=== PATIENT | male | born 1945 | race Caucasian/White ===

== ENCOUNTER → 2018-07-24 | Outpatient (REF) | payer MEDICARE, OTHER ==
[~2018-07-24] MED LIST: ASPIRIN LOW DOS81 M2 PO; BETIMOL0.5 % OP; FLUTICASONE50 MCG; GABAPENTIN300 MG PO; LIPITOR20 MG PO; LISINOPRIL5 MG PO; LORATADINE10 M1 PO; METOPROL TAR25 MG PO; PRILOSEC40 MG PO; TYLENOL # 31 TA1 PO
== END | disposition home or self-care (01) ==
LOC: RT 07:46 → CT 09:00
PROVIDERS: ATTEND Internal Medicine
DX: R05 Cough (principal)

== ENCOUNTER → 2018-12-02 | Outpatient (REF) | payer MEDICARE, OTHER ==
[2018-12-02 09:26] LABS: HEMATOCRIT 40.4 % (39.0-50.0); HEMOGLOBIN 13.1 g/dl (14.0-18.0); IMMATURE GRANULOCYTES 0.2 % (0.0-5.0); MEAN CELL VOLUME 89.2 fL CALC (80.0-100.0); MEAN CORPUSCULAR HGB 28.9 pG CALC (26.0-32.0); MEAN CORPUSCULAR HGB CONC 32.4 g/L CALC (32.0-36.0); NEUT# 2.51 thou/uL (1.82-7.42); RED BLOOD COUNT 4.53 mill/uL (4.70-6.10); RED CELL DISTRI WIDTH 12.7 % (11.5-15.5)
[2018-12-02 09:45] LABS: ALKALINE PHOSPHATASE 82 u/l (38-126); ANION GAP 14 (6-22 (CALC)); BILIRUBIN, TOTAL 0.6 mg/dL (0.0-1.4); BUN 23 mg/dL (8-23); BUN/CREATININE RATIO 18 (12-20 (CALC)); CALCULATED LDLCHOLESTEROL 65 mg/dL (62-129 (CALC)); CARBON DIOXIDE 25 mmol/l (22-30); CHLORIDE 106 mmol/l (95-108); CHOLESTEROL HDL RATIO 3.8 (<4.4 (CALC)); CREATININE 1.3 mg/dL (0.7-1.3); GFR 54 ML/MIN (>=60 (CALC)); GFR FOR AFR.AMER. > 60 ML/MIN (>=60 (CALC)); HDL CHOLESTEROL 29 mg/dL (>=40); POTASSIUM 4.3 mmol/l (3.5-5.1); SGOT/AST 25 u/l (19-48); SODIUM 142 mmol/l (137-146); TOTAL CHOLESTEROL 112 mg/dl (0-199); TOTAL PROTEIN 6.6 g/dL (6.3-8.2); TOTAL TRIGLYCERIDES 91 mg/dl (30-149); VLDL CHOLESTROL 18 mg/dl (0-38 (CALC))
[2018-12-02 09:48] LABS: MAGNESIUM 2.2 mg/dL (1.6-2.3)
[2018-12-02 10:15] LABS: TSH, 3RD GENERATION 3.61 uIU/mL (0.47 - 4.68)
== END | disposition home or self-care (01) ==
LOC: LAB 08:52
PROVIDERS: Internal Medicine Cardiovascular Disease; ATTEND Nurse Practitioner
DX: I48.0 Paroxysmal atrial fibrillation (principal); I11.9 Hypertensive heart disease without heart failure; N18.9 Chronic kidney disease, unspecified; R06.02 Shortness of breath; I27.20 Pulmonary hypertension, unspecified; I25.119 Atherosclerotic heart disease of native coronary artery with unspecified angina pectoris; E11.22 Type 2 diabetes mellitus with diabetic chronic kidney disease; I10 Essential (primary) hypertension; N18.3 Chronic kidney disease, stage 3 (moderate)

== ENCOUNTER → 2018-12-05 | Outpatient (REF) | payer MEDICARE, OTHER | END | disposition home or self-care (01) | LOC: CT 10:26 | PROVIDERS: ATTEND Internal Medicine Cardiovascular Disease | DX: I65.23 Occlusion and stenosis of bilateral carotid arteries (principal) | CPT/HCPCS: Q9967 ==

== ENCOUNTER → 2018-12-09 | Outpatient (REF) | payer MEDICARE, OTHER ==
[2018-12-09 11:28] LABS: URINE BILIRUBIN - DIPSTICK NEGATIVE (NEGATIVE); URINE BLOOD DIPSTICK NEGATIVE (NEGATIVE); URINE COLOR YELLOW; URINE GLUCOSE - DIPSTICK NEGATIVE (NEGATIVE); URINE KETONE NEGATIVE (NEGATIVE); URINE LEUK ESTERASE NEGATIVE (Negative); URINE NITRITE - DIPSTICK NEGATIVE (Negative); URINE PROTEIN - DIPSTICK 100 mg/dL (NEG-TRACE); URINE SPECIFIC GRAVITY 1.025; URINE UROBILINOGEN - DIPSTICK 0.2 E.U./dL (0.2)
[2018-12-09 11:29] LABS: URINE CLARITY SL CLOUDY
[2018-12-09 11:30] LABS: URINE EPITHELIAL CELLS FEW EPI/hpf (0-FEW); URINE MUCUS MODERATE hpf (NONE-FEW)
== END | disposition home or self-care (01) ==
LOC: LAB 10:20
PROVIDERS: ATTEND Nurse Practitioner
DX: R35.0 Frequency of micturition (principal); B96.20 Unspecified Escherichia coli [E. coli] as the cause of diseases classified elsewhere

== ENCOUNTER 2020-12-10 07:14 | Emergency (ER) | payer MEDICARE, OTHER ==
[~2020-12-10] VITALS: Ht 180.3 cm; Wt 106.0 kg
[2020-12-10] MEDS ORDERED: AMOXICILLIN875 MG PO (08:55)
[2020-12-10] MEDS ORDERED: FLOXIN OTIC0.3 % AS (08:55)
[2020-12-10 09:20] VITALS: BP 140/70
== END 2020-12-10 09:20 | disposition home or self-care (01) ==
LOC: ED 07:14
DX: H66.92 Otitis media, unspecified, left ear (principal); E11.9 Type 2 diabetes mellitus without complications; I10 Essential (primary) hypertension; Z95.1 Presence of aortocoronary bypass graft

== ENCOUNTER 2023-05-08 13:01 | Emergency (ER) | payer MEDICARE, OTHER ==
[~2023-05-08] VITALS: Ht 180.3 cm; Wt 89.0 kg
[~2023-05-08 13:01] MED LIST changes: +AMOXICILLIN875 MG PO; +FLOXIN OTIC0.3 % AS
[2023-05-08 13:20] VITALS: BP 127/63
[2023-05-08 13:30] VITALS: BP 121/58
[2023-05-08 14:00] VITALS: BP 124/63
[2023-05-08] MEDS ORDERED: KEFLEX500 MG PO (14:27)
[2023-05-08 14:30] VITALS: BP 120/64
[2023-05-08 14:32] VITALS: BP 120/64
== END 2023-05-08 14:38 | disposition home or self-care (01) ==
LOC: ED 13:01
DX: L03.011 Cellulitis of right finger (principal); E11.9 Type 2 diabetes mellitus without complications; I10 Essential (primary) hypertension

== ENCOUNTER 2023-05-11 10:47 | Inpatient (IN) | payer MEDICARE, OTHER ==
[~2023-05-11] VITALS: Ht 180.3 cm; Wt 92.0 kg
[2023-05-11] VITALS (13 sets, daily range): BP systolic 134–191; BP diastolic 67–129
[~2023-05-11 10:47] MED LIST changes: +KEFLEX500 MG PO
--- NOTE | 2023-05-11 10:48 | NUR ---
PT TO ER ROOM 12.
[2023-05-11] MEDS ORDERED: LEVOTHYROXIN75 MC1 PO (10:59)
[2023-05-11] MEDS ORDERED: XARELTO20 MG PO (11:00)
[2023-05-11] MEDS ORDERED: MONTELUKAST SOD10 MG PO (11:01)
[2023-05-11] MEDS ORDERED: ATORVASTATIN CA80 MG PO (11:01)
[2023-05-11] MEDS ORDERED: OZEMPIC2 MG (11:02)
[2023-05-11] MEDS ORDERED: DOXAZOSIN MESYLA2 MG PO (11:02)
[2023-05-11] MEDS ORDERED: GABAPENTIN400 M2 PO (11:03)
[2023-05-11] MEDS ORDERED: EZETIMIBE10 MG (11:03)
[2023-05-11] MEDS ORDERED: FARXIGA10 MG (11:04)
[2023-05-11] MEDS ORDERED: FUROSEMIDE20 MG PO (11:05)
[2023-05-11] MEDS ORDERED: DORZOLAMIDE HCL/1 ML OP (11:05)
[2023-05-11] MEDS ORDERED: ASPIRINCHW 81MG PO (11:06)
[2023-05-11] MEDS ORDERED: VITAMIN C 500 M1 CHW (11:06)
[2023-05-11] MEDS ORDERED: ZINC50 MG PO (11:06)
--- NOTE | 2023-05-11 11:32 | NUR ---
PT RESTING IN BED, EYES CLOSED. AT BEDSIDE.
[2023-05-11 12:00] LABS: BASO% 0.3 % (0-3); EOS% 3.3 % (0-8); HEMATOCRIT 36.3 % (39.0-50.0); HEMOGLOBIN 11.3 g/dl (14.0-18.0); IMMATURE GRANULOCYTES 0.2 % (0.0-5.0); LYMPH% 8.2 % (15-41); MEAN CELL VOLUME 89.4 fL CALC (80.0-100.0); MEAN CORPUSCULAR HGB 27.8 pG CALC (26.0-32.0); MEAN CORPUSCULAR HGB CONC 31.1 g/dL CAL (32.0-36.0); MONO% 10.8 % (2-13); NEUT# 4.43 thou/uL (1.82-7.42); NEUT% 77.2 % (42-76); RED BLOOD COUNT 4.06 mill/uL (4.70-6.10); RED CELL DISTRI WIDTH 12.9 % (11.5-15.5)
[2023-05-11 12:10] LABS: ALBUMIN 3.6 g/dL (3.2-5.0); BILIRUBIN, TOTAL 0.6 mg/dL (0.2-1.3); CREATININE 1.9 mg/dL (0.7-1.3); POTASSIUM 4.9 mmol/l (3.5-5.1); TOTAL PROTEIN 6.9 g/dL (6.3-8.2)
--- NOTE | 2023-05-11 12:10 | NUR ---
URINAL PROVIDED TO PT. URINE SAMPLE COLLECTED.
--- NOTE | 2023-05-11 13:20 | NUR ---
PT REPORT GIVEN TO THIAGO ON MS2
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
--- NOTE | 2023-05-11 20:01 | NUR ---
PATIENT SITTING UP IN BED WATCHING TV-AWAKE ALERT AND ORIENTEDX3. PATIENT WITH LEFT HAND SWELLING. PROVIDED WITH COLD PACK AND ELEVATED ON PILLOW. CMS TO LEFT FINGERS WNL. IV SITE TO RAC INTACT WITH IVF NS PATENT AND INFUSING AT 100CC/HR. IV PUMP IS BEEPING CONSTANTLY DUE TO PATIENT BENDING HIS ARM. NEW IV SITE STARTED TO RIGHT FOREARM-#22 WITH GOOD BLOOD RETURN. IVF PLACE TO RIGHT FOREARM SITE AT 100CC/HR. PATIENT VOIDING CLEAR YELLOW URINE IN URINAL. C/O BEING HUNGRY AND PROVIDED WITH [employer]NER. SAFETY PRECAUTIONS REINFORCED. CALL LIGHT IN REACH. WILL CONT TO MONITOR.
--- NOTE | 2023-05-11 22:18 | NUR ---
PATIENT SITTING UP IN BED WATCHING TV. NASAL SWAB OBTAINED ORDERED AND SENT TO LAB. URINAL EMPTIED FOR 150CC OF CLEAR YELLOW URINE. IVF NS PATENT AND INFUSING VIA RIGHT FOREARM SITE AT 100CC/HR. SITE REMAINS HEALTHY. LEFT HAND STILL SWOLLEN AND ELEVATED ON PILLOW-COLD PACK APPLIED TO HAND FOR COMFORT. CALL LIGHT IN REACH. WILL CONT TO MONITOR.
[2023-05-12] VITALS (7 sets, daily range): BP systolic 154–186; BP diastolic 68–87
--- NOTE | 2023-05-12 01:20 | NUR ---
RESTING IN BED WITH LEFT HAND ELEVATED ON PILLOW. IVF PATENT AND INFUSING VIA RIGHT FOREARM SITE. CALL LIGHT IN REACH. WILL CONT TO MONITOR.
--- NOTE | 2023-05-12 02:55 | NUR ---
PATIENT RESTING IN BED-C/O LEFT HAND PAIN-7/10 ON PAIN SCALE. MEDICATED WITH TYLENOL 650MG PO FOR PAIN. PROVIDED WITH COLD PACK FOR COMFORT. ELEVATED LEFT HAND ON PILLOW. NEW BAG OF IVF HUNG AND INFUSING VIA RIGHT FORERAM IV SITE ORDERED. CALL LIGHT IN REACH. WILL CONT TO MONITOR.
[2023-05-12 03:52] LABS: HEMATOCRIT 38.4 % (39.0-50.0); HEMOGLOBIN 11.6 g/dl (14.0-18.0); MEAN CELL VOLUME 91.9 fL CALC (80.0-100.0); MEAN CORPUSCULAR HGB 27.8 pG CALC (26.0-32.0); MEAN CORPUSCULAR HGB CONC 30.2 g/dL CAL (32.0-36.0); RED BLOOD COUNT 4.18 mill/uL (4.70-6.10); RED CELL DISTRI WIDTH 12.8 % (11.5-15.5)
[2023-05-12 04:12] LABS: ALBUMIN 3.4 g/dL (3.2-5.0); BILIRUBIN, TOTAL 0.5 mg/dL (0.2-1.3); MAGNESIUM 2.4 mg/dL (1.6-2.3); POTASSIUM 4.7 mmol/l (3.5-5.1); TOTAL PROTEIN 6.6 g/dL (6.3-8.2)
--- NOTE | 2023-05-12 07:17 | NUR ---
RECEIVED BEDSIDE REPORT FROM RICH ALLEN. PT RESTING IN BED WITH EYES CLOSED. ALL SAFETY MEASURES IN PLACE. VSS. NO NEEDS AT THIS TIME.
--- NOTE | 2023-05-12 14:42 | NUR ---
S: MAGAN CASPER is a 78 M who presents with cellulitis of left arm. He has a history of DM2. All medications in patient's chart were reviewed. O: VS: A: Blood culture <is pending P: Patient is on cefepime 1 gram q12h. Vancomycin ordered for pharmacy to dose. Start Vancomycin 1.25 gram IV Q24H. Vancomycin trough is drawn before the 4th dose on 05/14/24. Vancomycin goal trough is between <10-20 mcg/ml>. Pharmacy will follow and or advise on antibiotics use as needed.
--- NOTE | 2023-05-12 20:00 | NUR ---
RECEIVED REPORT FROM NURSE THIAGO, PATIENT RESTING IN BED, WATCHING TV, PATIENT IS ALERT ORIENTED, IV N RFA G 22 WITH NS 100CC/HR INFUSING WELL AND 20 ON RAC PATENT FLUSHES WELL, NOTED REDNESS AND EDEMA ON LEFT HAND EXTENDS TO THE LEFT FOREARM, C/O PAIN PS 9/10 WILL MEDICATE. BP ELEVATED AT 186/87 WILL GIVE PRN APRESOLINE.
[2023-05-13] VITALS (7 sets, daily range): BP systolic 130–186; BP diastolic 58–82
--- NOTE | 2023-05-13 | NUR ---
PATIENT RESTING IN BED WITH EYES CLOSED, BREATHING EVEN UNABORED NOT IN DISTRESS, CALL LIGHT IN REACH.
--- NOTE | 2023-05-13 03:59 | NUR ---
PATIENT RESTING IN BED EYES CLOSED, NOT IN DISTRESS, LEFT ARM ELEVATED WITH PILLOW, CALL LIGHT IN REACH.
[2023-05-13 04:48] LABS: HEMATOCRIT 34.3 % (39.0-50.0); HEMOGLOBIN 10.6 g/dl (14.0-18.0); MEAN CELL VOLUME 90.7 fL CALC (80.0-100.0); MEAN CORPUSCULAR HGB CONC 30.9 g/dL CAL (32.0-36.0); RED BLOOD COUNT 3.78 mill/uL (4.70-6.10)
[2023-05-13 05:09] LABS: ALBUMIN 2.8 g/dL (3.2-5.0); BILIRUBIN, TOTAL 0.5 mg/dL (0.2-1.3); CREATININE 1.7 mg/dL (0.7-1.3); MAGNESIUM 2.1 mg/dL (1.6-2.3); POTASSIUM 4.7 mmol/l (3.5-5.1); TOTAL PROTEIN 5.8 g/dL (6.3-8.2)
--- NOTE | 2023-05-13 09:45 | NUR ---
PT IN BED ALERT AND ORIENTED X 3, EATING BREAKFAST; PT HAS NO C/O PAIN AT THIS TIME. PT HAS IV SITE TO RFA CLEAN AND INTACT AND IV TO RAC CLEAN AND INTACT WITH NS @ 100 ML/HR INFUSING. LEFT HAND CONTINUES TO HAVE REDNESS, MO DRAINAGE NOTED FROM SITE. PT AMBULATES WITH 1 ASSIST TO THE BATHROOM FOR TOILETING NEEDS. PT HAS CALL LIGHT WITHIN REACH AND ALL SAFETY MEASURES IN PLACE AT THIS TIME.
--- NOTE | 2023-05-13 12:00 | NUR ---
PT SITTING UP IN CHAIR EATING LUNCH. PT HAS NO C/O PAIN AT THIS TIME. PT HAS NO BOX IN STATUS AT THIS TIME. CALL LIGHT WITHIN REACH AND ALL SAFETY MEASURES IN PLACE AT THIS TIME.
--- NOTE | 2023-05-13 16:00 | NUR ---
PT IN RM WITH HOB UP, ALERT AND ORIENTED X3; NO CHANGE IN STATUS AT THIS TIME. PT HAS CALL LIGHT WITHIN REACH.
--- NOTE | 2023-05-13 20:00 | NUR ---
PATIENT RESTING IN BED-AWAKE ALERT AND ORIENTEDX3. LEFT HAND STILL SLIGHTLY SWOLLEN BUT IMPROVED FROM WHEN ADMITTED. ENCOURAGED TO CONT TO KEEP LEFT HAND AND ARM ELEVATED ON PILLOW. CMS TO LEFT FINGERS WNL. MEDICATED FOR PAIN WITH LORTAB 5/325MG PO FOR 6/10 PAIN SCALE. MEDICATED FOR HTN WITH APRESOLINE 10MG IVP FOR BP 172/73. VOIDING CLEAR YELLOW URINE IN URINAL. IVF NS PATENT AND INFUSING VIA RIGHT FOREARM SITE AT 100CC/HR. SITE IS HEALTHY AT THIS TIME. CALL LIGHT IN REACH. WILL CONT TO MONITOR.
--- NOTE | 2023-05-13 22:00 | NUR ---
RESTING IN BED-BP DOWN TO 130/58. WILL CONT TO MONITOR.
--- NOTE | 2023-05-14 00:07 | NUR ---
PATIENT RESTING IN BED WITH EYES CLOSED. RESPS ARE EVEN AND UNLABORED. LEFT HAND IS ELEVATED. IVF PATENT AND INFUSING VIA RIGHT FOREARM AT 100CC/HR. CALL LIGHT IN REACH. WILL CONT TO MONITOR.
[2023-05-14 03:58] VITALS: BP 135/56
--- NOTE | 2023-05-14 04:45 | NUR ---
PATIENT RESTING IN BED WITH LEFT HAND ELEVATED. IVF NS PATENT AND INFUSING VIA RIGHT FOREARM SITE AT 100CC/HR. CALL LIGHT IN REACH. WILL CONT TO MONITOR.
[2023-05-14 05:31] LABS: ALBUMIN 2.7 g/dL (3.2-5.0); BILIRUBIN, TOTAL 0.4 mg/dL (0.2-1.3); CREATININE 1.8 mg/dL (0.7-1.3); POTASSIUM 4.8 mmol/l (3.5-5.1); TOTAL PROTEIN 5.4 g/dL (6.3-8.2)
[2023-05-14 05:35] LABS: HEMATOCRIT 34.7 % (39.0-50.0); HEMOGLOBIN 10.9 g/dl (14.0-18.0); MEAN CELL VOLUME 89.9 fL CALC (80.0-100.0); MEAN CORPUSCULAR HGB 28.2 pG CALC (26.0-32.0); MEAN CORPUSCULAR HGB CONC 31.4 g/dL CAL (32.0-36.0); RED BLOOD COUNT 3.86 mill/uL (4.70-6.10)
[2023-05-14 06:20] VITALS: BP 160/78
--- NOTE | 2023-05-14 08:00 | NUR ---
PT OUT OF BED IN CHAIR AT BEDSIDE, ALERT AND ORIENTED X3; PT HAS NO C/O PAIN AT THIS TIME. PT HAS IV TO LFA, CLEAN AND INTACT WITH NS INFUSING @ 100 ML/HR. PT AMBULATES WITH ONE ASSIST FOR TOILETING AND ALSO HAS URINAL. PT HAS CALL LIGHT WITHIN REACH AND ALL SAFETY MEASURES IN PLACE AT THIS TIME.
--- NOTE | 2023-05-14 12:00 | NUR ---
PT UP IN CHAIR, ALERT AND ORIENTED. PT HAS NO C/O PAIN AT THIS TIME. PT HAS NO CHANGE IN STATUS AT THIS TIME. PT HAS CALL LIGHT WITHIN REACH AND ALL SAFETY MEASURES IN PLACE AT THIS TIME.
[2023-05-14 14:56] VITALS: BP 161/77
--- NOTE | 2023-05-14 16:00 | NUR ---
PT UP IN CHAIR, PT HAS NO C/O PAIN AT THIS TIME. PT VANCO TROUGH DRAWN WAITING FOR VANCO FROM PHARMACY. PT HAS CALL LIGHT WITHIN REACH AND ALL SAFETY MEASURES IN PLACE AT THIS TIME.
[2023-05-14 19:22] VITALS: BP 159/77
--- NOTE | 2023-05-14 19:30 | NUR ---
PATIENT SITTING UP IN RECLINER WITH LEFT HAND ELEVATED IN THE AIR-SWELLING CONT TO IMPROVE. CMS TO LEFT FINGERS WNL. IVF NS PATENT AND INFUSING VIA RIGHT FOREARM SITE AT 100CC/HR. SITE IS HEALTHY AT THIS TIME. VOIDING CLEAR YELLOW URINE IN URINAL. LUNGS ARE CLEAR. ABD IS SOFT WITH ACTIVE BS. PATIENT STATES THAT HE DID HAVE BM THIS MORNING. NO L E SWELLING NOTED AND PULSES ARE PALPABLE. SAFETY PRECAUTIONS REINFORCED.CALL LIGHT IN REACH. WILL CONT TO MONITOR.
[2023-05-14 19:38] VITALS: BP 159/77
--- NOTE | 2023-05-14 21:30 | NUR ---
PATIENT NOW RESTING IN BED-GLUCOSE CHESK WAS 282-COVERED WITH HUMALOG 3UNITS SQ PER HUMALOG SS COVERAGE PROTOCOL. PROVIDED WITH HS SNACK OF CEREAL BAR. MEDICTED FOR PAIN WITH LORTAB 5/325MG PO FOR 6/10 PAIN SCALE. IVF PATENT AND IFNSUING VIA RIGHT FOREARM SITE AT 100CC/HR. CONT TO VOID YELLOW URINE IN URINAL. CALL LIGHT IN REACH. WILL CONT TO MONITOR.
--- NOTE | 2023-05-15 01:00 | NUR ---
PATIENT RESTING IN BED WITH EYES CLOSED. RESPS ARE EVEN AND UNLABORED. IVF PATENT AND INFUSING VIA RIGHT FOREARM SITE AT 100CC/HR. LEFT HAND ELEVATED AT THIS TIME. CONT TO VOID YELLOW URINE IN URINAL. CALL LIGHT IN REACH. WILL CONT TO MONITOR.
[2023-05-15 04:45] VITALS: BP 179/83
[2023-05-15 05:09] VITALS: BP 179/83
--- NOTE | 2023-05-15 05:30 | NUR ---
PATIENT RESTING IN BED-BP ELEVATED AT 179/83, HR-73. MEDICATED WITH APPRESOLINE 10MG IVP ORDERED FOR HTN. IVF PATENT AND INFUSING VIA RIGHT FOREARM SITE. CALL LIGHT IN REACH. WILL CONT TO MONITOR.
[2023-05-15 06:28] VITALS: BP 164/76
[2023-05-15 06:52] VITALS: BP 164/76
[2023-05-15 07:01] VITALS: BP 164/76
--- NOTE | 2023-05-15 08:00 | NUR ---
PT IN CHAIR, EATING BREAKFAST. PT HAS NO C/O PAIN AT THIS TIME. IV SITE TO RFA WITH NS @ 100 ML/HR. PT AMBULATES WITH ONE ASSIST TO BATHROOM FOR TOILETING NEEDS. LEFT HAND HAS MILD REDNESS AND IS ELEVATED. PT HAS CALL LIGHT WITHIN REACH AND ALL SAFETY MEASURES IN PLACE AT THIS TIME.
--- NOTE | 2023-05-15 09:50 | NUR ---
PT IS AMBULATES WITH ASSISTANCE OF 1 ASSIT AND WALKER. PT WALKED AROUND HIS ROOM AND TO AND FROM THE BATHROOM.
[2023-05-15] MEDS ORDERED: VIBRAMYCIN100 M2 PO (10:47)
[2023-05-15] MEDS ORDERED: PREDNISONE10 MG PO (10:49)
--- NOTE | 2023-05-15 11:00 | NUR ---
PTS GLUCOSE WAS 340 @1100
--- NOTE | 2023-05-15 12:10 | NUR ---
PT SITTING UP IN CHAIR AT BEDSIDE. PT HAS NO C/O PAIN A THIS TIME, PT HAS NO CHANGE IN STATUS AT THIS TIME. PT HAS CALL LIGHT WITHIN REACH.
--- NOTE | 2023-05-15 13:35 | NUR ---
Discharge instructions given. Patient verbalizes understanding of same. Discharged in stable condition via Wheelchair to Home with family. All belongings sent with pt.
--- NOTE | 2023-05-15 13:40 | NUR ---
MAGAN CASPER is a 78 year old Male. He's being treated for cellulitis on left thumb and left arm with doxycycline. Blood culture preliminary No Growth after 48 hours. Ht: 5ft 11 in, Wt: 92kg, DW: 92Kg, SCr:1.8, CrCl (calc) = 42.59 ml/min WBC: 6.3, Tmax: 97.9F. Tcurrent: 97.1 HR: 90 beats/min, BP: 164/76 mmHg, RR 17 breaths/min,Sa02: 99% Trough= 11 mg/L AP vancomycin is therapeutic at the current dose. Goal level is 10-15mg/L. 1. Continue dose of vancomycin 1250mg IV q24h. 2. Check trough on 05/18/23 at 1500, 30 minutes prior to 1530 dose. 3. Monitor BMP daily Pharmacy will continue to follow.
== END 2023-05-15 13:30 | disposition home or self-care (01) | DRG 603 ==
LOC: ED 10:47 → MS2 12:45
PROVIDERS: Family Medicine; ADMIT Internal Medicine; ATTEND Internal Medicine
DX: L03.114 Cellulitis of left upper limb (principal); L03.012 Cellulitis of left finger; I10 Essential (primary) hypertension; E11.22 Type 2 diabetes mellitus with diabetic chronic kidney disease; N18.30 Chronic kidney disease, stage 3 unspecified; I48.91 Unspecified atrial fibrillation; I25.10 Atherosclerotic heart disease of native coronary artery without angina pectoris; E03.9 Hypothyroidism, unspecified; Z79.01 Long term (current) use of anticoagulants; Z95.1 Presence of aortocoronary bypass graft; Z79.85 Long-term (current) use of injectable non-insulin antidiabetic drugs; Z79.84 Long term (current) use of oral hypoglycemic drugs
CPT/HCPCS: J0692; J3370

== ENCOUNTER 2024-07-03 18:52 | Observation (INO) | payer MEDICARE, OTHER ==
[~2024-07-03] VITALS: Ht 180.3 cm; Wt 95.6 kg
[2024-07-03] VITALS (15 sets, daily range): BP systolic 142–189; BP diastolic 61–83
[~2024-07-03 18:52] MED LIST changes: +ASPIRINCHW 81MG PO; +ATORVASTATIN CA80 MG PO; +DORZOLAMIDE HCL/1 ML OP; +DOXAZOSIN MESYLA2 MG PO; +EZETIMIBE10 MG; +FARXIGA10 MG; +FUROSEMIDE20 MG PO; +GABAPENTIN400 M2 PO; +LEVOTHYROXIN75 MC1 PO; +MONTELUKAST SOD10 MG PO; +OZEMPIC2 MG; +PREDNISONE10 MG PO; +VIBRAMYCIN100 M2 PO; +VITAMIN C 500 M1 CHW; +XARELTO20 MG PO; +ZINC50 MG PO
[2024-07-03] MEDS ORDERED: ONDANSETRON HCl 4 MG/2 ML SDV IV STA (19:19)
[2024-07-03] MEDS ORDERED: SODIUM CHLORIDE 0.9% 1,000 ML IV STA (19:19)
[2024-07-03 19:44] LABS: BASO% 0.8 % (0-3); EOS% 3.4 % (0-8); HEMATOCRIT 33.4 % (39.0-50.0); HEMOGLOBIN 10.4 g/dl (14.0-18.0); IMMATURE GRANULOCYTES 0.3 % (0.0-5.0); LYMPH% 17.8 % (15-41); MEAN CELL VOLUME 87.7 fL CALC (80.0-100.0); MEAN CORPUSCULAR HGB 27.3 pG CALC (26.0-32.0); MEAN CORPUSCULAR HGB CONC 31.1 g/dL CAL (32.0-36.0); MONO% 10.1 % (2-13); NEUT# 2.55 thou/uL (1.82-7.42); NEUT% 67.6 % (42-76); RED BLOOD COUNT 3.81 mill/uL (4.70-6.10); RED CELL DISTRI WIDTH 13.8 % (11.5-15.5)
[2024-07-03] MEDS ORDERED: LABETALOL HCL 20 MG/ 4 ML CARTRG IV ONE (19:55)
[2024-07-03 19:56] LABS: ALBUMIN 3.2 g/dL (3.2-5.0); BILIRUBIN, TOTAL 0.5 mg/dL (0.2-1.3); POTASSIUM 4.6 mmol/l (3.5-5.1); TOTAL PROTEIN 6.4 g/dL (6.3-8.2)
[2024-07-03 20:36] LABS: URINE BILIRUBIN - DIPSTICK Negative (NEGATIVE); URINE BLOOD DIPSTICK Trace-intact (NEGATIVE); URINE GLUCOSE - DIPSTICK 500 mg/dL (NEGATIVE); URINE KETONE Trace mg/dL (NEGATIVE); URINE LEUK ESTERASE Negative (NEGATIVE); URINE NITRITE - DIPSTICK Negative (Negative); URINE PH 5.5 (4.5-8.0); URINE PROTEIN - DIPSTICK >=300 mg/dL (NEG-TRACE); URINE SPECIFIC GRAVITY 1.025; URINE UROBILINOGEN - DIPSTICK 0.2 E.U./dL (0.2)
[2024-07-03 20:37] LABS: URINE COLOR Yellow
[2024-07-03 20:43] LABS: URINE RBC 0-2 RBC/hpf (0-5); URINE SQUAMOUS EPITHELIAL CELL FEW EPI/hpf (0-FEW)
[2024-07-03 20:45] LABS: URINE HYALINE CAST MODERATE lpf (NONE-RARE)
[2024-07-04] VITALS (18 sets, daily range): BP systolic 124–190; BP diastolic 54–84
[2024-07-04] MEDS ORDERED: ACETAMINOPHEN 325 MG/TAB PO PRN (00:20)
[2024-07-04] MEDS ORDERED: SODIUM CHLORIDE 0.9% 1,000 ML IV PRN (00:20)
[2024-07-04] MEDS ORDERED: MAGNESIUM HYDROXIDE 30 ML UDC PO PRN (00:20)
[2024-07-04] MEDS ORDERED: AVAPRO75 MG PO (00:33)
[2024-07-04] MEDS ORDERED: CLARITIN10 M1 PO (00:34)
[2024-07-04] MEDS ORDERED: VITAMIN B-121000 MCG PO (00:35)
[2024-07-04] MEDS ORDERED: SINGULAIR10 MG PO (00:35)
[2024-07-04] MEDS ORDERED: XARELTO15 MG PO (00:36)
[2024-07-04] MEDS ORDERED: hydrALAZINE HCL 20 MG/ML VIAL(1 ML) IV PRN (04:30)
[2024-07-04] MEDS ORDERED: ONDANSETRON HCl 4 MG/2 ML SDV IV PRN (04:30)
[2024-07-04] MEDS ORDERED: guaiFENesin-CODEINE 200-20 MG/10 ML UDC PO PRN (08:55)
[2024-07-04] MEDS ORDERED: GABAPENTIN 100 MG/CAP PO SCH (09:00)
[2024-07-04] MEDS ORDERED: LOSARTAN Potassium 50 MG/TAB PO SCH (09:00)
[2024-07-04] MEDS ORDERED: ATORVASTATIN CALCIUM 40 MG/TAB PO SCH (09:00)
[2024-07-04] MEDS ORDERED: RIVAROXABAN 15 MG TAB PO SCH (10:00)
[2024-07-04] MEDS ORDERED: ENOXAPARIN SODIUM 40 MG/0.4 ML SYR SC SCH (21:00)
[2024-07-04 21:18] LABS: TSH, 3RD GENERATION 10.9 uIU/mL (0.47 - 4.68)
[2024-07-05] VITALS (7 sets, daily range): BP systolic 133–179; BP diastolic 53–84
[2024-07-05 05:20] LABS: BASO% 0.6 % (0-3); EOS% 4.4 % (0-8); HEMATOCRIT 32.4 % (39.0-50.0); HEMOGLOBIN 9.8 g/dl (14.0-18.0); IMMATURE GRANULOCYTES 0.3 % (0.0-5.0); LYMPH% 23.6 % (15-41); MEAN CELL VOLUME 90.8 fL CALC (80.0-100.0); MEAN CORPUSCULAR HGB 27.5 pG CALC (26.0-32.0); MEAN CORPUSCULAR HGB CONC 30.2 g/dL CAL (32.0-36.0); MONO% 14.2 % (2-13); NEUT# 1.93 thou/uL (1.82-7.42); NEUT% 56.9 % (42-76); RED BLOOD COUNT 3.57 mill/uL (4.70-6.10); RED CELL DISTRI WIDTH 14.3 % (11.5-15.5)
[2024-07-05 05:42] LABS: BILIRUBIN, TOTAL 0.4 mg/dL (0.2-1.3); C-REACTIVE PROTEIN 1.5 mg/dL (0-0.9); CREATININE 1.9 mg/dL (0.7-1.3); POTASSIUM 4.5 mmol/l (3.5-5.1)
[2024-07-05 05:51] LABS: ALBUMIN 2.4 g/dL (3.2-5.0); TOTAL PROTEIN 5.1 g/dL (6.3-8.2)
[2024-07-05] MEDS ORDERED: LEVOTHYROXINE SODIUM 75 MCG/TAB PO SCH (06:00)
[2024-07-05] MEDS ORDERED: DEXAMETHASONE 2 MG/TAB TAB PO SCH (09:30)
[2024-07-05] MEDS ORDERED: DOXYCYCLINE HYCLATE 100 MG in SODIUM CHLORIDE 0.9% 100 ML IV SCH (10:00)
[2024-07-05] MEDS ORDERED: DOCUSATE CALCIUM 240 MG/CAP PO PRN (13:15)
[2024-07-05] MEDS ORDERED: Polyethylene Glycol 3350 17 GM/PKT PO PRN (13:15)
[2024-07-05] MEDS ORDERED: BISACODYL 10 MG SUPP PR SCH (17:00)
[2024-07-05] MEDS ORDERED: DEXTROSE 50% 50 ML/SYR IV PRN (21:35)
[2024-07-05] MEDS ORDERED: DEXTROSE 250 ML IV PRN (21:35)
[2024-07-05] MEDS ORDERED: INSULIN LISPRO 100 UNITS/ML ML SC SCH (21:36)
[2024-07-06] VITALS (7 sets, daily range): BP systolic 127–183; BP diastolic 54–125
[2024-07-06 05:58] LABS: HEMATOCRIT 31.1 % (39.0-50.0); HEMOGLOBIN 9.4 g/dl (14.0-18.0); MEAN CELL VOLUME 89.6 fL CALC (80.0-100.0); MEAN CORPUSCULAR HGB 27.1 pG CALC (26.0-32.0); MEAN CORPUSCULAR HGB CONC 30.2 g/dL CAL (32.0-36.0); RED BLOOD COUNT 3.47 mill/uL (4.70-6.10); RED CELL DISTRI WIDTH 14.1 % (11.5-15.5)
[2024-07-06 06:12] LABS: ALBUMIN 2.4 g/dL (3.2-5.0); BILIRUBIN, TOTAL 0.3 mg/dL (0.2-1.3); CREATININE 1.9 mg/dL (0.7-1.3); TOTAL PROTEIN 5.2 g/dL (6.3-8.2)
[2024-07-06] MEDS ORDERED: INSULIN LISPRO 100 UNITS/ML ML SC SCH (07:00)
[2024-07-06] MEDS ORDERED: LACTULOSE 20 GM/30 ML UDC PO SCH (10:00)
[2024-07-06] MEDS ORDERED: NYSTATIN 15 GM/TUBE TOP SCH (13:00)
[2024-07-06] MEDS ORDERED: FUROSEMIDE 40 MG/4 ML SDV IV SCH (15:30)
[2024-07-07] VITALS (7 sets, daily range): BP systolic 138–172; BP diastolic 58–86
[2024-07-07 05:39] LABS: BASO% 0.1 % (0-3); HEMATOCRIT 29.6 % (39.0-50.0); HEMOGLOBIN 9.2 g/dl (14.0-18.0); IMMATURE GRANULOCYTES 0.1 % (0.0-5.0); LYMPH% 7.8 % (15-41); MEAN CELL VOLUME 88.9 fL CALC (80.0-100.0); MEAN CORPUSCULAR HGB 27.6 pG CALC (26.0-32.0); MEAN CORPUSCULAR HGB CONC 31.1 g/dL CAL (32.0-36.0); MONO% 7.1 % (2-13); NEUT# 6.01 thou/uL (1.82-7.42); NEUT% 84.9 % (42-76); RED BLOOD COUNT 3.33 mill/uL (4.70-6.10); RED CELL DISTRI WIDTH 14.2 % (11.5-15.5)
[2024-07-07 05:55] LABS: ALBUMIN 2.4 g/dL (3.2-5.0); BILIRUBIN, TOTAL 0.2 mg/dL (0.2-1.3); CREATININE 2.1 mg/dL (0.7-1.3); MAGNESIUM 2.1 mg/dL (1.6-2.3)
[2024-07-07] MEDS ORDERED: FUROSEMIDE 20 MG/TAB PO SCH (09:00)
[2024-07-07] MEDS ORDERED: DOXYCYCLINE100 MG PO (11:23)
== END 2024-07-07 14:55 | disposition home or self-care (01) ==
LOC: ED 18:52 → ED-I 07-04 00:10 → ED 07-04 00:19 → ED-I 07-04 00:19 → ED 07-04 00:22 → MS2 07-04 00:23
PROVIDERS: Nurse Practitioner; Nurse Practitioner Family; ADMIT Internal Medicine; ATTEND Internal Medicine
DX: A08.11 Acute gastroenteropathy due to Norwalk agent (principal); U07.1 COVID-19; R05.9 Cough, unspecified; I10 Essential (primary) hypertension; E11.22 Type 2 diabetes mellitus with diabetic chronic kidney disease; N18.32 Chronic kidney disease, stage 3b; I48.20 Chronic atrial fibrillation, unspecified; I25.810 Atherosclerosis of coronary artery bypass graft(s) without angina pectoris; E03.9 Hypothyroidism, unspecified; Z86.16 Personal history of COVID-19; Z95.1 Presence of aortocoronary bypass graft; Z79.85 Long-term (current) use of injectable non-insulin antidiabetic drugs; Z87.440 Personal history of urinary (tract) infections
CPT/HCPCS: G0378

== ENCOUNTER 2024-07-26 17:52 | Observation (INO) | payer MEDICARE, OTHER ==
[2024-07-26] VITALS (18 sets, daily range): BP systolic 148–210; BP diastolic 65–95
[~2024-07-26] VITALS: Ht 180.3 cm; Wt 92.9 kg
[~2024-07-26 17:52] MED LIST changes: +AVAPRO75 MG PO; +CLARITIN10 M1 PO; +DOXYCYCLINE100 MG PO; +SINGULAIR10 MG PO; +VITAMIN B-121000 MCG PO; +XARELTO15 MG PO
[2024-07-26] MEDS ORDERED: ONDANSETRON HCl 4 MG/2 ML SDV IV ONE (18:05)
[2024-07-26] MEDS ORDERED: LABETALOL HCL 100 MG/20 ML VIAL IV ONE (18:05)
[2024-07-26 18:17] LABS: BASO% 0.3 % (0-3); EOS% 5.3 % (0-8); HEMOGLOBIN 10.8 g/dl (14.0-18.0); IMMATURE GRANULOCYTES 0.3 % (0.0-5.0); LYMPH% 29.1 % (15-41); MEAN CELL VOLUME 91.1 fL CALC (80.0-100.0); MEAN CORPUSCULAR HGB 27.3 pG CALC (26.0-32.0); MONO% 18.2 % (2-13); NEUT# 1.41 thou/uL (1.82-7.42); NEUT% 46.8 % (42-76); RED BLOOD COUNT 3.95 mill/uL (4.70-6.10); RED CELL DISTRI WIDTH 14.8 % (11.5-15.5)
[2024-07-26 18:34] LABS: CREATININE 1.9 mg/dL (0.7-1.3)
[2024-07-26 18:37] LABS: URINE BILIRUBIN - DIPSTICK Negative (NEGATIVE); URINE BLOOD DIPSTICK Trace-intact (NEGATIVE); URINE COLOR Yellow; URINE GLUCOSE - DIPSTICK Negative (NEGATIVE); URINE KETONE Negative (NEGATIVE); URINE LEUK ESTERASE Negative (NEGATIVE); URINE NITRITE - DIPSTICK Negative (Negative); URINE PH 6.5 (4.5-8.0); URINE PROTEIN - DIPSTICK >=300 mg/dL (NEG-TRACE); URINE SPECIFIC GRAVITY 1.025; URINE UROBILINOGEN - DIPSTICK 0.2 E.U./dL (0.2)
[2024-07-26 18:38] LABS: URINE RBC 0-2 RBC/hpf (0-5); URINE WBC 0-2 WBC/hpf (0-5)
[2024-07-26 18:46] LABS: ALBUMIN 3.4 g/dL (3.2-5.0); BILIRUBIN, TOTAL 0.7 mg/dL (0.2-1.3); POTASSIUM 3.8 mmol/l (3.5-5.1); TOTAL PROTEIN 6.9 g/dL (6.3-8.2)
[2024-07-26] MEDS ORDERED: ACETAMINOPHEN 325 MG/TAB PO ONE (19:55)
[2024-07-26] MEDS ORDERED: OZEMPIC2 MG SC (20:10)
[2024-07-26] MEDS ORDERED: CINNAMON500 MG PO (20:13)
[2024-07-26] MEDS ORDERED: VITAMIN B-121000 MCG IM (20:13)
[2024-07-26] MEDS ORDERED: SODIUM CHLORIDE 0.9% 1,000 ML IV PRN (23:00)
[2024-07-26] MEDS ORDERED: ACETAMINOPHEN 325 MG/TAB PO PRN (23:00)
[2024-07-26] MEDS ORDERED: MAGNESIUM HYDROXIDE 30 ML UDC PO PRN (23:00)
[2024-07-27] VITALS (43 sets, daily range): BP systolic 117–202; BP diastolic 47–106
[2024-07-27] MEDS ORDERED: ONDANSETRON HCl 4 MG/2 ML SDV IV PRN (00:10)
[2024-07-27] MEDS ORDERED: hydrALAZINE HCL 20 MG/ML VIAL(1 ML) IV PRN (00:10)
[2024-07-27] MEDS ORDERED: GABAPENTIN 100 MG/CAP PO SCH (09:00)
[2024-07-27] MEDS ORDERED: amLODIPine BESYLATE 5 MG/TAB PO SCH (09:00)
[2024-07-27] MEDS ORDERED: RIVAROXABAN 15 MG TAB PO SCH (09:00)
[2024-07-27] MEDS ORDERED: LOSARTAN Potassium 25 MG/TAB PO SCH (09:00)
[2024-07-27] MEDS ORDERED: ATORVASTATIN CALCIUM 40 MG/TAB PO SCH (09:00)
[2024-07-27] MEDS ORDERED: LABETALOL HCL 20 MG/ 4 ML CARTRG IV ONE (10:20)
[2024-07-27] MEDS ORDERED: SODIUM CHLORIDE 0.9% 250 ML IV SCH (10:20)
[2024-07-27] MEDS ORDERED: DEXTROSE 250 ML IV PRN (12:00)
[2024-07-27] MEDS ORDERED: INSULIN LISPRO 100 UNITS/ML ML SC SCH (12:00)
[2024-07-27] MEDS ORDERED: ENOXAPARIN SODIUM 40 MG/0.4 ML SYR SC SCH (21:00)
[2024-07-28] VITALS (10 sets, daily range): BP systolic 147–200; BP diastolic 56–95
[2024-07-28 04:35] LABS: HEMATOCRIT 31.7 % (39.0-50.0); HEMOGLOBIN 9.5 g/dl (14.0-18.0); MEAN CELL VOLUME 92.4 fL CALC (80.0-100.0); MEAN CORPUSCULAR HGB 27.7 pG CALC (26.0-32.0); RED BLOOD COUNT 3.43 mill/uL (4.70-6.10); RED CELL DISTRI WIDTH 15.4 % (11.5-15.5)
[2024-07-28 04:37] LABS: CREATININE 2.4 mg/dL (0.7-1.3); MAGNESIUM 2.3 mg/dL (1.6-2.3); POTASSIUM 3.8 mmol/l (3.5-5.1)
[2024-07-28 04:39] LABS: ALBUMIN 2.4 g/dL (3.2-5.0); BILIRUBIN, TOTAL 0.4 mg/dL (0.2-1.3)
[2024-07-28] MEDS ORDERED: LEVOTHYROXINE SODIUM 75 MCG/TAB PO SCH (06:00)
[2024-07-28] MEDS ORDERED: ZOFRAN4 MG/TAB PO (07:21)
[2024-07-28] MEDS ORDERED: DICYCLOMINE HYD10 MG PO (07:21)
== END 2024-07-28 09:55 | disposition home or self-care (01) ==
LOC: ED 17:52 → ED-I 22:15 → ED 22:42 → ICU 22:43
PROVIDERS: Family Medicine; Internal Medicine; ADMIT Student in an Organized Health Care Education/Training Program; ATTEND Student in an Organized Health Care Education/Training Program
DX: R11.2 Nausea with vomiting, unspecified (principal); R19.7 Diarrhea, unspecified; I16.0 Hypertensive urgency; I13.10 Hypertensive heart and chronic kidney disease without heart failure, with stage 1 through stage 4 chronic kidney disease, or unspecified chronic kidney disease; E11.22 Type 2 diabetes mellitus with diabetic chronic kidney disease; N18.32 Chronic kidney disease, stage 3b; I48.91 Unspecified atrial fibrillation; I25.810 Atherosclerosis of coronary artery bypass graft(s) without angina pectoris; E03.9 Hypothyroidism, unspecified; Z79.01 Long term (current) use of anticoagulants; Z95.1 Presence of aortocoronary bypass graft; Z20.822 Contact with and (suspected) exposure to COVID-19

== ENCOUNTER 2024-10-05 11:12 | Emergency (ER) | payer MEDICARE, OTHER ==
[~2024-10-05] VITALS: Ht 180.3 cm; Wt 92.9 kg
[~2024-10-05 11:12] MED LIST changes: +CINNAMON500 MG PO; +DICYCLOMINE HYD10 MG PO; +OZEMPIC2 MG SC; +VITAMIN B-121000 MCG IM; +ZOFRAN4 MG/TAB PO
[2024-10-05 13:09] VITALS: BP 209/98
[2024-10-05 13:16] VITALS: BP 204/92
[2024-10-05 13:31] VITALS: BP 184/83
[2024-10-05 13:47] VITALS: BP 184/83
== END 2024-10-05 13:47 | disposition home or self-care (01) ==
LOC: ED 11:12
DX: S49.81XA Other specified injuries of right shoulder and upper arm, initial encounter (principal); R93.6 Abnormal findings on diagnostic imaging of limbs; I12.9 Hypertensive chronic kidney disease with stage 1 through stage 4 chronic kidney disease, or unspecified chronic kidney disease; E11.22 Type 2 diabetes mellitus with diabetic chronic kidney disease; N18.30 Chronic kidney disease, stage 3 unspecified; Z95.1 Presence of aortocoronary bypass graft; X58.XXXA Exposure to other specified factors, initial encounter; Z79.85 Long-term (current) use of injectable non-insulin antidiabetic drugs